=== PATIENT | female | born 1995 | race Caucasian/White ===

== ENCOUNTER 2019-04-24 12:28 | Emergency (ER) | payer MEDICAID, OTHER ==
[2019-04-24 13:54] VITALS: BP 124/76
[2019-04-24] MEDS ORDERED: predniSONE TAB* 20 MG PO ONE (14:04)
--- NOTE | 2019-04-24 14:04 | UC ---
Skin Complaint HPI - HPI Summary HPI Summary: Pt presents with c/o wasp bite to posterior left upper thigh that happened yesterday. Pt c/o painful erythematous circular area that has worsened since initial sting. Pt denies difficulty breathing, swelling of tongue, lips or airway. - History of Current Complaint Chief Complaint: UCAllergicReaction Time Seen by Provider: 04/24/19 13:49 Stated Complaint: LEFT LEG BEE STING Hx Obtained From: Patient Hx Last Menstrual Period: 04/23/14 ?: No Onset/Duration: Sudden Onset Skin Exposure Onset/Duration: Hours Ago - 24 Timing: Constant Onset Severity: Moderate Current Severity: Moderate Pain Intensity: 5 Location: Discrete - left posterior upper thigh Character: Pruritus, Pain, Redness, Raised, Painful Aggravating Factor(s): Touch Alleviating Factor(s): Unknown Associated Signs & Symptoms: Positive: Tenderness Related History: Insect Bite/Sting - Allergy/Home Medications Allergies/Adverse Reactions: Allergies Allergy/AdvReac Type Severity Reaction Status Date / Time No Known Allergies Allergy Verified 04/24/19 13:54 Home Medications: Home Medications NK [No Home Medications Reported] 04/24/19 [History Confirmed 04/24/19] PMH/Surg Hx/FS Hx/Imm Hx Previously Healthy: Yes - Surgical History Surgical History: None - Family History Known Family History: Positive: Cardiac Disease - Social History Occupation: Employed Full-time Lives: With Family Alcohol Use: Rare Substance Use Type: None Smoking Status (MU): Never Smoked Tobacco Have You Smoked in the Last Year: No - Immunization History Vaccination Up to Date: Yes Review of Systems All Other Systems Reviewed And Are Negative: Yes Constitutional: Positive: Negative Skin: Positive: Other - erythema, large urticaria, left posterior upper thigh Eyes: Positive: Negative ENT: Positive: Negative Respiratory: Positive: Negative Cardiovascular: Positive: Negative Gastrointestinal: Positive: Negative Genitourinary: Positive: Negative Motor: Positive: Negative Neurovascular: Positive: Negative Musculoskeletal: Positive: Negative Neurological: Positive: Negative Psychological: Positive: Negative Is Patient Immunocompromised?: No Physical Exam Triage Information Reviewed: Yes Appearance: Well-Appearing Vital Signs: Initial Vital Signs Temp 97.0 F 04/24/19 13:51 Pulse 80 04/24/19 13:51 Resp 18 04/24/19 13:51 BP 124/76 04/24/19 13:51 Pulse Ox 99 04/24/19 13:51 Vital Signs Reviewed: Yes Eye Exam: Normal ENT Exam: Normal ENT: Positive: Hearing grossly normal Dental Exam: Normal Neck exam: Normal Respiratory: Positive: No respiratory distress Musculoskeletal Exam: Normal Neurological Exam: Normal Psychological Exam: Normal Skin Exam: Other - large erythematous urticaria ~ 10 cm in diameter, mild erythematous. left upper posterior thigh Course/Dx - Differential Diagnoses - Skin Complaint Differential Diagnoses: Cellulitis, Urticaria - Diagnoses Provider Diagnosis: Urticaria, Insect bite Discharge ED - Sign-Out/Discharge Documenting (check all that apply): Patient Departure All imaging exams completed and their final reports reviewed: No Studies - Discharge Plan Condition: Stable Disposition: HOME Patient Education Materials: Antihistamine (By mouth), Insect Bite or Sting (ED ) Referrals: Hyacinth Marte PA [Primary Care Provider] - - Billing Disposition and Condition Condition: STABLE Disposition: Home
== END 2019-04-24 14:16 | disposition home or self-care (01) ==
LOC: UCCORT 12:28
DX: S70.362A Insect bite (nonvenomous), left thigh, initial encounter (principal); L50.9 Urticaria, unspecified; W57.XXXA Bitten or stung by nonvenomous insect and other nonvenomous arthropods, initial encounter; Y92.9 Unspecified place or not applicable
CPT/HCPCS: 99212; G0463; J7512

== ENCOUNTER 2019-09-29 15:49 | Emergency (ER) | payer MEDICAID ==
[2019-09-29 16:57] VITALS: BP 127/83
--- NOTE | 2019-09-29 19:11 | UC ---
Throat Pain/Nasal Jarod HPI - HPI Summary HPI Summary: Patient is a 24yo female presenting with sore throat and chills x2 days. Denies nasal congestion and cough. States she has had tonsil stones in the past and believes she may have them now. Notes pain radiating from right side of throat to right ear and that she "might have an ear infection." Denies known fevers. Denies n/v. Denies concern for flu but states concern for strep. Denies taking anything for symptom relief. - History of Current Complaint Chief Complaint: UCGeneralIllness Stated Complaint: SORE THROAT Hx Obtained From: Patient Hx Last Menstrual Period: 09/25/19 Pain Intensity: 6 Pain Scale Used: 0-10 Numeric - Allergies/Home Medications Allergies/Adverse Reactions: Allergies Allergy/AdvReac Type Severity Reaction Status Date / Time No Known Allergies Allergy Verified 09/29/19 16:53 Home Medications: Home Medications Penicillin VK 500 MG TAB(NF) [Penicillin VK 500 mg Tab] 500 mg PO BID #20 tab [Rx] PMH/Surg Hx/FS Hx/Imm Hx Previously Healthy: Yes - Surgical History Surgical History: None - Family History Known Family History: Positive: Cardiac Disease - Social History Alcohol Use: Rare Substance Use Type: None Smoking Status (MU): Never Smoked Tobacco Have You Smoked in the Last Year: No - Immunization History Vaccination Up to Date: Yes Review of Systems All Other Systems Reviewed And Are Negative: Yes Constitutional: Positive: Chills ENT: Positive: Sore Throat, Ear Ache - right. Negative: Sinus Congestion Respiratory: Positive: Negative Cardiovascular: Positive: Negative Gastrointestinal: Positive: Negative Musculoskeletal: Positive: Negative Neurological/Mental Status: Positive: Negative Physical Exam - Summary Physical Exam Summary: Vital Signs Reviewed: Yes A+Ox3, no distress, well-appearing Eyes: Conjunctiva Clear ENT: Hearing grossly normal, TM x 2 clear, moist, uvula midline, +exudates, + pharyngeal erythema, +mild tonsillar swelling Neck: Positive: Supple, +enlarged tender tonsillar nodes Respiratory: Positive: No respiratory distress, No accessory muscle use + CTA throughout no w/r Cardiovascular: RRR nl s1, s2 no m/r Musculoskeletal Exam: MEZA x 4 without difficulty Neurological: Positive: Alert Psychological: Positive: age appropriate behavior Skin: Positive: no rash, no ecchymosis Vital Signs: Initial Vital Signs Temp 97.4 F 09/29/19 16:53 Pulse 87 09/29/19 16:53 Resp 15 09/29/19 16:53 BP 127/83 09/29/19 16:53 Pulse Ox 100 09/29/19 16:53 Lab Results 09/29/19 Range/Units 19:24 Group A Strep Rapid Positive H (Negative) Throat Pain/Nasal Course/Dx - Course Course Of Treatment: Rapid strep test positive. I treated patient with penicillin and instructed to continue with symptomatic treatment. Instructed to follow up with pcp if symptoms persist. Patient voiced understanding and agreed with treatment plan. - Differential Dx/Diagnosis Differential Diagnosis/HQI/PQRI: Pharyngitis, Tonsillitis, URI Provider Diagnosis: Strep pharyngitis Discharge ED - Sign-Out/Discharge Documenting (check all that apply): Patient Departure All imaging exams completed and their final reports reviewed: No Studies - Discharge Plan Condition: Stable Disposition: HOME Prescriptions: Penicillin VK 500 MG TAB(NF) [Penicillin VK 500 mg Tab] 500 mg PO BID #20 tab Patient Education Materials: Strep Throat (ED) Forms: *Work Release Referrals: Hyacinth Marte PA [Primary Care Provider] - If Needed Additional Instructions: As discussed, you tested positive for strep throat today. Take penicillin as prescribed for the treatment of strep throat. You may take ibuprofen and/or tylenol as directed for fever and pain relief. You may use over the counter throat sprays or lozenges for symptomatic relief. Get plenty of rest and fluids. Follow up with your primary care provider if symptoms do not improve within 10 days. - Billing Disposition and Condition Condition: STABLE Disposition: Home
== END 2019-09-29 19:41 | disposition home or self-care (01) ==
LOC: UCCORT 15:49
DX: J02.0 Streptococcal pharyngitis (principal); H92.01 Otalgia, right ear
CPT/HCPCS: 87651; 99212; G0463